=== PATIENT | female | born 1970 | race Hispanic/Latino ===

== ENCOUNTER 2020-07-15 20:41 | Emergency (ER) | payer SELFPAY ==
[~2020-07-15] VITALS: Ht 162.6 cm; Wt 60.0 kg
[~2020-07-15 20:41] MED LIST: ULTRAM50 M1 PO
[2020-07-15 20:59] VITALS: BP 114/58
== END 2020-07-15 21:20 | disposition home or self-care (01) | DRG 156 ==
LOC: ED 20:41
PROC: 3E1B78Z Irrigation of Ear using Irrigating Substance, Via Natural or Artificial Opening (ICD-10-PCS; principal; 2020-07-15)
DX: H61.22 Impacted cerumen, left ear (principal)

== ENCOUNTER 2021-03-06 13:26 | Emergency (ER) | payer SELFPAY ==
[~2021-03-06] VITALS: Ht 154.9 cm; Wt 67.0 kg
[2021-03-06] MEDS ORDERED: AMOXICILLIN875 MG PO (14:00)
[2021-03-06] MEDS ORDERED: CORTISPORIN OTI10 M2 AD (14:00)
[2021-03-06 14:18] VITALS: BP 110/70
== END 2021-03-06 14:18 | disposition home or self-care (01) | DRG 153 ==
LOC: ED 13:26
DX: H66.91 Otitis media, unspecified, right ear (principal)